=== PATIENT | female | born 1965 | race Caucasian/White ===

== ENCOUNTER 2016-12-25 04:26 | Emergency (ER) | payer BC ==
[~2016-12-25] VITALS: Ht 160 cm; Wt 98.8 kg
[2016-12-25 04:28] VITALS: Ht 160 cm; Wt 98.8 kg
[2016-12-25 05:02] LABS: BASO % 0.5 %; BASO ABS # 0.04 K/uL (0-0.2); COMPLETE YES; HEMATOCRIT 42.2 % (37-47); LYMPH % 37.8 %; LYMPH ABS # 3.08 K/uL (1.2-3.4); MEAN CELL VOLUME 90.4 fL (80-100); MEAN CORPUSCULAR HEMOGLOBIN 30.2 pg (25-34); MEAN CORPUSCULAR HGB CONC 33.4 g/dl (32-36); MEAN PLATELET VOLUME 9.4 fL (7.4-10.4); MONO % 7.6 %; NEUT % 49.1 %; PLATELET COUNT 358 K/uL (130-400); RED BLOOD COUNT 4.67 M/uL (4.2-5.4); WHITE BLOOD COUNT 8.14 K/uL (4.8-10.8)
[2016-12-25] MEDS ORDERED: CZR50 PO (05:05)
--- NOTE | 2016-12-25 05:06 | EMERGENCY ROOM VISIT NOTE ---
History First contact with patient: 04:36 Chief Complaint: CARDIAC ASSESSMENT Stated Complaint: CHEST DISCOMFORT Nursing Triage Summary: Pt c/o mid sternal chest pain/pressure starting around 1000. C/o some right arm weakness and shortness of breath. History of Present Illness The patient is a 51 year old female who presents to the Emergency Room with complaints of chest discomfort which began approximately 8 hours ago. The patient states that she first developed discomfort while she was at work last night. She initially thought it was indigestion and took Zantac without relief. She states it is a pressure like sensation across the front of her chest. She reports some weakness in her right arm. She reports very slight shortness of breath. She denies any nausea, vomiting, jaw pain or diaphoresis. She denies any history of cardiac problems. She states that her father had an ME at age 41, but denies any other family history of heart disease. She has a history of hypertension and takes medication for this. She has had a stress test in the past but is unsure when that was. She is not a smoker. Review of Systems A complete 10 point review of systems was reviewed with the patient with pertinent positives and negatives as per history of present illness. All else were negative. Past Medical/Surgical History Medical Problems: (1) Arm edema (2) Cellulitis of right forearm (3) Chest pain (4) Chest pain of uncertain etiology (5) Dyspnea on exertion (6) Foreign body in ear (7) HTN (hypertension) (8) HTN (hypertension) (9) Hypertension (10) Otalgia (11) Otitis externa (12) Right otitis externa Surgical Problems: (1) History of tubal ligation (2) No significant past surgical history Family History Cancer Diabetes mellitus Heart disease Hypertension Social History Smoking Status: Never Smoker Alcohol Use: occasionally Drug Use: none Marital Status: Housing Status: lives with family Occupation Status: employed Current/Historical Medications Scheduled Losartan Potassium (Losartan Potassium), 50 MG PO DAILY Physical Exam Vital Signs Date Time Temp Pulse Resp B/P (MAP) Pulse Ox O2 Delivery O2 Flow Rate FiO2 12/25/16 06:18 36.3 77 17 129/79 96 12/25/16 05:56 77 17 12/25/16 05:31 129/79 Room Air 12/25/16 05:26 76 16 12/25/16 05:01 143/90 12/25/16 04:56 83 22 12/25/16 04:52 147/102 12/25/16 04:48 82 12/25/16 04:47 147/102 12/25/16 04:28 36.3 77 18 171/91 96 Room Air Physical Exam VITALS: Vitals are noted on the nurse's note and reviewed by myself. Vital signs stable. GENERAL: This is a 51-year-old female, in no acute distress, nondiaphoretic, well-developed well-nourished. HEENT: Normocephalic. PERRLA. Mucous membranes moist. Neck is supple without nuchal rigidity. HEART: Regular rate and rhythm without murmurs gallops or rubs. LUNGS: Clear to auscultation bilaterally without wheezes, rales or rhonchi. No retractions or accessory muscle use. ABDOMEN: Soft, nontender to palpation. NEURO: Patient was alert and oriented to person place and time. Medical Decision & Procedures ER Provider Diagnostic Interpretation: CHEST X-RAY: No acute cardiopulmonary abnormalities. Laboratory Results 12/25/16 04:45 Red Blood Count 4.67, Mean Corpuscular Volume 90.4, Mean Corpuscular Hemoglobin 30.2, Mean Corpuscular Hemoglobin Concent 33.4, Mean Platelet Volume 9.4, Neutrophils (%) (Auto) 49.1, Lymphocytes (%) (Auto) 37.8, Monocytes (%) (Auto) 7.6, Eosinophils (%) (Auto) 5.0, Basophils (%) (Auto) 0.5, Neutrophils # (Auto) 3.99, Lymphocytes # (Auto) 3.08, Monocytes # (Auto) 0.62, Eosinophils # (Auto) 0.41, Basophils # (Auto) 0.04 12/25/16 04:45 Test 12/25/16 04:45 12/25/16 04:56 White Blood Count 8.14 K/uL (4.8-10.8) Red Blood Count 4.67 M/uL (4.2-5.4) Hemoglobin 14.1 g/dL (12.0-16.0) Hematocrit 42.2 % (37-47) Mean Corpuscular Volume 90.4 fL (80-100) Mean Corpuscular Hemoglobin 30.2 pg (25-34) Mean Corpuscular Hemoglobin Concent 33.4 g/dl (32-36) Platelet Count 358 K/uL (130-400) Mean Platelet Volume 9.4 fL (7.4-10.4) Neutrophils (%) (Auto) 49.1 % Lymphocytes (%) (Auto) 37.8 % Monocytes (%) (Auto) 7.6 % Eosinophils (%) (Auto) 5.0 % Basophils (%) (Auto) 0.5 % Neutrophils # (Auto) 3.99 K/uL (1.4-6.5) Lymphocytes # (Auto) 3.08 K/uL (1.2-3.4) Monocytes # (Auto) 0.62 K/uL (0.11-0.59) Eosinophils # (Auto) 0.41 K/uL (0-0.5) Basophils # (Auto) 0.04 K/uL (0-0.2) RDW Standard Deviation 42.5 fL (36.4-46.3) RDW Coefficient of Variation 13.0 % (11.5-14.5) Immature Granulocyte % (Auto) 0.0 % Immature Granulocyte # (Auto) 0.00 K/uL (0.00-0.02) Anion Gap 6.0 mmol/L (3-11) Est Creatinine Clear Calc Drug Dose 97.9 ml/min Estimated GFR () 104.3 Estimated GFR (Non- 90.0 BUN/Creatinine Ratio 21.1 (10-20) Calcium Level 8.8 mg/dl (8.5-10.1) Total Bilirubin 0.4 mg/dl (0.2-1) Aspartate Amino Transf (AST/SGOT) 22 U/L (15-37) Alanine Aminotransferase (ALT/SGPT) 39 U/L (12-78) Alkaline Phosphatase 120 U/L (45-117) Total Creatine Kinase 91 U/L (26-192) Creatine Kinase MB 0.9 ng/ml (0.5-3.6) Creatine Kinase MB Ratio 1.0 (0-3.0) Total Protein 7.4 gm/dl (6.4-8.2) Albumin 3.6 gm/dl (3.4-5.0) Globulin 3.8 gm/dl (2.5-4.0) Albumin/Globulin Ratio 0.9 (0.9-2) Bedside Troponin I < 0.030 ng/ml (0-0.045) ECG Rate (beats per minute): 79 Rhythm: normal sinus Findings: no acute ischemic change, no ectopy Change: no significant change ED Course The patient was evaluated as above. Labs were drawn and IV access was obtained. Patient was reevaluated and findings were discussed. She is ready for discharge. Discharge instructions were reviewed with the patient. The patient verbalized understanding of my assessment and treatment plan and was discharged home in good condition. Medical Decision Differential diagnosis includes acute coronary syndrome, pulmonary embolism, pneumothorax, pericarditis, myocarditis, endocarditis, anxiety, musculoskeletal pain, GERD, costochondritis, among others. The patient is a 51-year-old female who presents today complaining of epigastric pain/chest pain. Labs were unremarkable. Troponin was not elevated , and given that the patient has had symptoms greater than 8 hours I do not feel repeat trop is necessary. EKG is unchanged from a previous. Patient's symptoms are more consistent with GERD or gastritis than with cardiac cause. Her symptoms improved with Maalox. She was encouraged to follow up with her PCP as she may need further cardiac workup as an outpatient. Based on the patient's presentation and work up, I feel the patient is stable for outpatient treatment. The patient was educated to return to the emergency department for any worsening of their current condition or new/concerning symptoms. She will follow up with her PCP. The patient's case was reviewed with Dr. Shaw, ED attending physician, who agreed with my assessment and treatment plan. Medication Reconcilliation Current Medication List: was personally reviewed by me Blood Pressure Screening Patient's blood pressure: Normal blood pressure Impression Primary Impression: Chest discomfort Departure Information Dispostion Home / Self-Care Condition GOOD Referrals Delores Grace M.D. (PCP) Patient Instructions My [facility] Additional Instructions You have been treated in the Emergency Department for your Chest Pain. Laboratory results and Imaging Studies have ruled out any acute cardiac or pulmonary cause of your chest pain. For pain control, you can use the following [id number] medicines (if >12 yo): - Regular strength (325mg/tab) Tylenol (acetaminophen) 2 tabs every 4-6 hours as needed. Do not exceed 12 tablets in a 24 hour period. Avoid taking more than 4 grams (4000 mg) of Tylenol per day. This includes any other sources of acetaminophen you may take on a regular basis. - Regular strength (200 mg/tab) Advil (ibuprofen) 1-2 tabs every 4-6 hours as needed. Do not exceed a dose of 3200 mg per day. You should schedule a follow-up appointment with your Primary Care Provider in 2 -3 days for further evaluation from today's Emergency Department visit. Return to the Emergency Department if your current symptoms worsen despite treatment course outlined above, or if you develop any of the following symptoms : worsening chest pain, associated jaw/arm pain, nausea, dizziness, shortness of breath, bloody cough, or fainting.
[2016-12-25 05:20] LABS: BUN/CREATININE RATIO 21.1 (10-20); CALCIUM 8.8 mg/dl (8.5-10.1); CREATININE 0.77 mg/dl (0.60-1.20); POTASSIUM 3.8 mmol/L (3.5-5.1)
[2016-12-25 05:25] LABS: ALB/GLOB RATIO 0.9 (0.9-2)
[2016-12-25 06:18] VITALS: BP 129/79; PULSE 77; TEMP 36.3; O2SAT 96
--- NOTE | 2016-12-25 07:14 | DIAGNOSTIC IMAGING REPORT ---
CHEST ONE VIEW PORTABLE CLINICAL HISTORY: Chest pain. COMPARISON STUDY: Chest radiograph May 31, 2015. FINDINGS: Lung volumes are mildly diminished. This is unchanged. No pneumothorax or pleural effusion is present. There is no consolidation to suggest pneumonia. Cardiomediastinal silhouette is stable. There is suspected bibasilar subsegmental atelectasis. IMPRESSION: No acute cardiopulmonary findings. Electronically signed by: Miky Grace M.D. 12/25/2016 7:13 AM Dictated Date/Time: 12/25/2016 7:12 AM
== END 2016-12-25 06:19 | disposition home or self-care (01) ==
LOC: C.EDB 04:26
DX: R07.89 Other chest pain (principal); I10 Essential (primary) hypertension; Z86.19 Personal history of other infectious and parasitic diseases; Z98.51 Tubal ligation status; Z80.9 Family history of malignant neoplasm, unspecified; Z83.3 Family history of diabetes mellitus; Z82.49 Family history of ischemic heart disease and other diseases of the circulatory system

== ENCOUNTER → 2017-01-02 | Outpatient (CLI) | payer BC ==
[~2017-01-02] MED LIST: CZR50 PO
--- NOTE | 2017-01-02 16:34 | DIAGNOSTIC IMAGING REPORT ---
LEFT KNEE MRI HISTORY: LEFT KNEE PAIN COMPARISON STUDY: None. TECHNIQUE: Multiplanar multisequence MRI of the left knee was performed according to standard department protocol without the use of contrast. FINDINGS: Menisci: The lateral meniscus is intact. There is a vertical tear within the body of the medial meniscus seen on coronal image 13. This extends to the undersurface of the meniscus. The medial meniscus is slightly extruded from the joint space. Ligaments: The anterior and posterior cruciate ligaments are intact. The medial collateral ligament is normal in appearance. Mild thickening and increased signal within the proximal attachment of the LCL which is likely due to an old partial tear. There is no surrounding edema to suggest acute process. Extensor mechanism: The quadriceps tendon and patellar ligament are intact. Articular cartilage and bone: Normal marrow signal intensity seen throughout the visualized osseous structures. No fracture or dislocation. There is less than 50% cartilage thinning within the medial compartment of the knee and small marginal osteophytes. This is consistent with mild osteoarthritis. The lateral and patellofemoral compartment cartilage spaces are maintained. Joint effusion: None. Soft tissues: Small popliteal cyst. IMPRESSION: 1. Small vertical tear within the body of the medial meniscus. 2. Mild osteoarthritis within the medial compartment of the knee. 3. Small popliteal cyst. 4. Mild thickening and increased signal within the proximal attachment of the LCL. There is no surrounding edema to suggest an acute injury. Therefore, this favors an old partial tear. Electronically signed by: Travis Barron M.D. 01/02/2017 4:33 PM Dictated Date/Time: 01/02/2017 4:26 PM
== END | disposition home or self-care (01) ==
LOC: C.MRIBC 15:15
PROVIDERS: ATTEND Internal Medicine
DX: S83.242A Other tear of medial meniscus, current injury, left knee, initial encounter (principal); M17.12 Unilateral primary osteoarthritis, left knee; M71.22 Synovial cyst of popliteal space [Baker], left knee; X58.XXXA Exposure to other specified factors, initial encounter

== ENCOUNTER → 2017-05-19 | Outpatient (CLI) | payer BC ==
[2017-05-19 18:35] LABS: ALBUMIN 3.4 gm/dl (3.4-5.0); ALT/SGPT 30 U/L (12-78); AST/SGOT 20 U/L (15-37); BLOOD UREA NITROGEN 13 mg/dl (7-18); CALCIUM 9.1 mg/dl (8.5-10.1); CARBON DIOXIDE 31 mmol/L (21-32); CREATININE 0.79 mg/dl (0.60-1.20); GLUCOSE 93 mg/dl (70-99); POTASSIUM 3.8 mmol/L (3.5-5.1); SODIUM 137 mmol/L (136-145)
[2017-05-19 18:37] LABS: ALKALINE PHOSPHATASE 102 U/L (45-117); TOTAL PROTEIN 7.4 gm/dl (6.4-8.2)
== END | disposition home or self-care (01) ==
LOC: C.LABBFT 12:31
PROVIDERS: ATTEND Internal Medicine
DX: Z00.00 Encounter for general adult medical examination without abnormal findings (principal); R39.9 Unspecified symptoms and signs involving the genitourinary system; I10 Essential (primary) hypertension